=== PATIENT | female | born 1955 | race Caucasian/White ===

== ENCOUNTER → 2019-07-25 | Outpatient (CLI) | payer MEDICAID ==
[~2019-07-25] VITALS: Ht 160 cm; Wt 142.9 kg
[~2019-07-25] MED LIST: BUSPAR DIVIDOSE15 MG PO; BUSPAR5 MG PO; COREG 6.256.25 MG/TA PO; COZAAR 50MG50 MG/TAB PO; ELIQUIS 5MG PO; GLUCOPHAGE500 MG/TAB PO; LASIX 40MG TABL40 MG PO; PACERONE400 MG PO; TYLENOL 500MG500 MG PO; VIIBRYD10 MG PO; VIIBRYD40 MG PO; VOLTAREN 75 DR75 MG PO
[2019-07-25 09:22] VITALS: BP 138/74; PULSE 68
== END ==
LOC: LIGHT 08:46
DX: E88.81 Metabolic syndrome and other insulin resistance (principal); E11.9 Type 2 diabetes mellitus without complications; I10 Essential (primary) hypertension; E66.01 Morbid (severe) obesity due to excess calories; Z68.43 Body mass index [BMI] 50.0-59.9, adult; Z71.3 Dietary counseling and surveillance
CPT/HCPCS: G0463

== ENCOUNTER → 2019-08-07 | Outpatient (CLI) | payer MEDICAID | LOC: LIGHT 14:31 | DX: E88.81 Metabolic syndrome and other insulin resistance (principal); E11.9 Type 2 diabetes mellitus without complications; I10 Essential (primary) hypertension; E66.01 Morbid (severe) obesity due to excess calories; Z68.43 Body mass index [BMI] 50.0-59.9, adult; Z71.3 Dietary counseling and surveillance ==

== ENCOUNTER → 2019-08-21 | Outpatient (CLI) | payer MEDICAID ==
[~2019-08-21] VITALS: Ht 160 cm; Wt 141.1 kg
[2019-08-21 13:07] VITALS: BP 146/84; PULSE 72
== END ==
LOC: LIGHT 12:58
DX: G47.33 Obstructive sleep apnea (adult) (pediatric) (principal); E11.65 Type 2 diabetes mellitus with hyperglycemia; M15.9 Polyosteoarthritis, unspecified; E66.01 Morbid (severe) obesity due to excess calories; Z68.43 Body mass index [BMI] 50.0-59.9, adult; Z71.3 Dietary counseling and surveillance
CPT/HCPCS: G0463

== ENCOUNTER → 2019-08-22 | Outpatient (CLI) | payer MEDICAID | LOC: LIGHT 13:32 | DX: G47.33 Obstructive sleep apnea (adult) (pediatric) (principal); E11.65 Type 2 diabetes mellitus with hyperglycemia; M15.9 Polyosteoarthritis, unspecified; E66.01 Morbid (severe) obesity due to excess calories; Z68.43 Body mass index [BMI] 50.0-59.9, adult; Z71.3 Dietary counseling and surveillance ==

== ENCOUNTER → 2019-09-25 | Outpatient (CLI) | payer MEDICAID ==
[~2019-09-25] VITALS: Ht 160 cm; Wt 140.6 kg
[2019-09-25 13:48] VITALS: BP 140/80; PULSE 60
== END ==
LOC: LIGHT 09:31
DX: G47.33 Obstructive sleep apnea (adult) (pediatric) (principal); E11.65 Type 2 diabetes mellitus with hyperglycemia; M15.9 Polyosteoarthritis, unspecified; E66.01 Morbid (severe) obesity due to excess calories; Z68.43 Body mass index [BMI] 50.0-59.9, adult; Z71.3 Dietary counseling and surveillance
CPT/HCPCS: G0463

== ENCOUNTER → 2019-12-18 | Outpatient (CLI) | payer MEDICAID ==
[~2019-12-18] VITALS: Ht 160 cm; Wt 141.7 kg
[2019-12-18 13:57] VITALS: BP 152/92; PULSE 64
== END ==
LOC: LIGHT 13:48
DX: Z68.43 Body mass index [BMI] 50.0-59.9, adult (principal); E11.9 Type 2 diabetes mellitus without complications; G47.30 Sleep apnea, unspecified
CPT/HCPCS: G0463

== ENCOUNTER → 2020-01-15 | Outpatient (CLI) | payer MEDICAID ==
[~2020-01-15] VITALS: Ht 160 cm; Wt 145.6 kg
[2020-01-15 13:02] VITALS: BP 156/84; PULSE 64
== END ==
LOC: LIGHT 12:45
DX: Z68.43 Body mass index [BMI] 50.0-59.9, adult (principal); E11.9 Type 2 diabetes mellitus without complications; G47.30 Sleep apnea, unspecified
CPT/HCPCS: G0463

== ENCOUNTER → 2020-04-29 | Outpatient (CLI) | payer MEDICAID ==
[~2020-04-29] VITALS: Ht 160 cm; Wt 146.7 kg
[2020-04-29 13:31] VITALS: BP 132/70; PULSE 68
--- NOTE | 2020-04-29 14:09 | NUR ---
[facility] PRIOR AUTHORIZATION WAS RECEIVED IMMEDIATELY PRIOR TO THE TEMPORARY CLOSURE OF OUR CLINIC FOR COVID 19 CORONAVIRUS. PT HAD SOME QUESTIONS ABOUT THE SAXENDA MED AND HER METFORMIN MED, AND REQUIRED INSTRUCTION ON INJECTION TECHNIQUE. OUR CLINIC REOPENED THIS APRIL. PT WENT TO PHARMACY AND OBTAINED SAXENDA AND BROUGHT IT WITH HER TO THIS APPOINTMENT. PT INSTRUCTED ON SELF INJECTION TECHNIQUE AND DOSING. A PAGE WITH DOSING INFORMATION WAS REVEIWED WITH AND GIVEN TO PT. A SHEET WITH SPECIFIC INJECTION INSTRUCTIONS WAS REVEIWED WITH AND GIVEN TO PT. NURSE GAVE PT HER FIRST INJECTION OF SAXENDA 0.6MG SQ RIGHT LOWER ABD. PT USED DEMONSTRATION PEN FOR SAXENDA TO MIRROR TECHNIQUES. NO INJECTION WITH DEMONSTRATION OF TECHNIQUE. PT DEMONSTRATED TECHNIQUE FOR SELF INJECTION WELL.
== END ==
LOC: LIGHT 02-19 10:34
DX: E66.01 Morbid (severe) obesity due to excess calories (principal); Z68.43 Body mass index [BMI] 50.0-59.9, adult; E11.9 Type 2 diabetes mellitus without complications; Z79.84 Long term (current) use of oral hypoglycemic drugs
CPT/HCPCS: G0463

== ENCOUNTER → 2020-05-27 | Outpatient (CLI) | payer MEDICAID ==
[~2020-05-27] VITALS: Ht 160 cm; Wt 143.8 kg
[2020-05-27 14:52] VITALS: BP 124/82; PULSE 64
== END ==
LOC: LIGHT 11:43
DX: E66.01 Morbid (severe) obesity due to excess calories (principal); Z68.43 Body mass index [BMI] 50.0-59.9, adult; E11.9 Type 2 diabetes mellitus without complications; G47.30 Sleep apnea, unspecified; I48.91 Unspecified atrial fibrillation
CPT/HCPCS: G0463

== ENCOUNTER → 2020-06-17 | Outpatient (CLI) | payer MEDICAID ==
[~2020-06-17] VITALS: Ht 160 cm; Wt 143.3 kg
[~2020-06-17] MED LIST changes: +SAXENDA6 MG/ML SQ
[2020-06-17 13:49] VITALS: BP 156/78; PULSE 80
== END ==
LOC: LIGHT 11:52
DX: E66.01 Morbid (severe) obesity due to excess calories (principal); Z68.43 Body mass index [BMI] 50.0-59.9, adult; E11.9 Type 2 diabetes mellitus without complications; G47.30 Sleep apnea, unspecified
CPT/HCPCS: G0463

== ENCOUNTER → 2020-07-22 | Outpatient (CLI) | payer MEDICAID ==
[~2020-07-22] VITALS: Ht 160 cm; Wt 144.9 kg
[2020-07-22 14:34] VITALS: BP 130/80; PULSE 64
== END ==
LOC: LIGHT 14:30
DX: E66.01 Morbid (severe) obesity due to excess calories (principal); Z68.43 Body mass index [BMI] 50.0-59.9, adult; E11.9 Type 2 diabetes mellitus without complications; G47.30 Sleep apnea, unspecified
CPT/HCPCS: G0463

== ENCOUNTER → 2020-08-19 | Outpatient (CLI) | payer MEDICAID ==
[~2020-08-19] VITALS: Ht 160 cm; Wt 147.2 kg
[2020-08-19 14:05] VITALS: BP 142/92; PULSE 76
== END ==
LOC: LIGHT 14:00
DX: E66.01 Morbid (severe) obesity due to excess calories (principal); Z68.43 Body mass index [BMI] 50.0-59.9, adult; E11.9 Type 2 diabetes mellitus without complications
CPT/HCPCS: G0463

== ENCOUNTER → 2020-09-16 | Outpatient (CLI) | payer MEDICAID ==
[~2020-09-16] VITALS: Ht 160 cm; Wt 146.1 kg
[2020-09-16 14:39] VITALS: BP 126/78; PULSE 80
== END ==
LOC: LIGHT 14:36
DX: E66.01 Morbid (severe) obesity due to excess calories (principal); Z68.43 Body mass index [BMI] 50.0-59.9, adult; E11.9 Type 2 diabetes mellitus without complications; G47.30 Sleep apnea, unspecified
CPT/HCPCS: G0463